=== PATIENT | female | born 1950 | race Caucasian/White ===

== ENCOUNTER 2018-11-27 12:17 | Emergency (ER) | payer MEDICARE ==
[2018-11-27] MEDS ORDERED: PROPARACAINE HCL OPTH 15ML BTL OPTH ONE (13:37)
--- NOTE | 2018-11-27 13:41 | Emergency Department Record ---
History of Present Illness - General Chief complaint: Eye Problem Stated complaint: PINK EYE Time Seen by Provider: 11/27/18 13:26 Source: Patient Mode of Arrival: Ambulatory Limitations: No limitations - History of Present Illness Initial comments: The patient is here due to a 7 day hx of cough and congestion. She was seen at the almost a week ago and given an oral Abx. Later in the week her eyes became red and she again was seen 4 days ago there and was treated with Polytrim eye drops. Now she feels her eyes may be reacting to the medicines and she is having more redness. She denies any eye pain, blurred vision, or LUNDY and she does not wear contacts. chief complaint: Eye redness Onset/Timin -: Days(s) Onset Description: Gradual Location: Both eyes Place: Home Severity: Moderate If Pain, Quality: Aching Consistency: Constant Associated Symptoms: Cough - Related Data Visual acuity (L) = 20/: 30 Visual acuity (R) = 20/: 30 With correction: No Previous Rx's Medication Instructions Recorded Olopatadine HCl [Pataday] 2.5 ml OP DAILY #1 drops 11/27/18 Allergies Allergy/AdvReac Type Severity Reaction Status Date / Time Bee stings Allergy Severe anaphylatic Uncoded 09/16/17 16:28 Travel Screening - Travel/Exposure Within Last 30 Days Have you traveled within the last 30 days?: No - Travel/Exposure Within Last Year Have you traveled outside the [place] in the last year?: No - Additonal Travel Details Have you been exposed to anyone with a communicable illness?: No - Travel Symptoms Symptom Screening: None Review of Systems Constitutional: Denies: Chills, Fever Eyes: Denies: Eye discharge ENT: Reports: Congestion Respiratory: Reports: Cough. 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 - CARDIOVASCULAR Hx Cardio Disorders: Yes Hx CHF: Yes Hx Hypertension: Yes - NEURO Hx Neuro Disorders: No - GI Hx GI Disorders: Yes Hx GI Bleed: Yes (10 years ago) - Hx Genitourinary Disorders: No - ENDOCRINE Hx Endocrine Disorders: No - MUSCULOSKELETAL Hx Musculoskeletal Disorders: Yes Hx Arthritis: Yes - PSYCH Hx Psych Problems: No - HEMATOLOGY/ONCOLOGY Hx Hematology/Oncology Disorders: No Family Medical History Any Significant Family History?: Yes Hx Heart Disease: Grandparents Physical Exam - General General Appearance: Alert, Oriented x3, Cooperative, No acute distress - Head Head exam: Atraumatic, Normocephalic - Eye Eye exam: PERRL, Conjunctival injection (mod bilaterally L>R.), EOMI, Other ( Neg corneal flourescein uptake on staining bilaterally.). negative: Normal appearance, Periorbital swelling, Periorbital tenderness With correction: No - ENT Throat exam: Normal inspection. negative: Tonsillar erythema, Tonsillar exudate - Neck Neck exam: Normal inspection, Full ROM. negative: Tenderness - Respiratory Respiratory exam: Normal lung sounds bilaterally. negative: Respiratory distress - Cardiovascular Cardiovascular Exam: Regular rate, Normal rhythm, Normal heart sounds Course Vital Signs 11/27/18 13:17 Temperature 98.1 F Pulse Rate 77 Respiratory 20 Rate Blood Pressure 137/94 Pulse Ox 95 - Reevaluation(s) Reevaluation #1: I did discuss the fact that the patient most likely has viral URI causing her symptoms. Additionally she could be having a reaction to the Polytrim so we will have her stop the eye drops and start antihistamine eye drops. She is to see her PCP later this week for recheck. 11/27/18 13:45 Disposition Disposition: Discharge Clinical Impression: Conjunctivitis Qualifiers: Conjunctivitis type: unspecified Laterality: bilateral Qualified Code(s): H10.9 - Unspecified conjunctivitis Disposition: Home, Self-Care Condition: (2) Stable Instructions: Conjunctivitis (ED) Additional Instructions: Please stop the eye drops and use the Pataday as directed. Please see your family doctor in 2-3 days if not better. Return to the ER for any worsening symptoms. Prescriptions: Olopatadine HCl [Pataday] 2.5 ml OP DAILY #1 drops Forms: Patient Portal Access Time of Disposition: 13:48 Quality - Quality Measures Quality Measures: N/A - Blood Pressure Screening View Details: Yes Does Patient Have Any of the Following: No Blood Pressure Classification: Hypertensive Reading Systolic Measurement: 137 Diastolic Measurement: 94 Screening for High Blood Pressure: < First Hypertensive BP, F/U Documented > [ [id number]] First Hypertensive Follow-up Interventions: Referral to alternative/primary care provider.
== END 2018-11-27 14:03 | disposition home or self-care (01) ==
LOC: ER 12:17
DX: H10.33 Unspecified acute conjunctivitis, bilateral (principal); J06.9 Acute upper respiratory infection, unspecified; R05 Cough; I10 Essential (primary) hypertension; I50.9 Heart failure, unspecified
CPT/HCPCS: 99282

== ENCOUNTER 2019-02-08 06:28 | Inpatient (IN) | payer MEDICARE ==
[2019-02-08 06:47] LABS: ABSOLUTE NEUTROPHIL COUNT 3.86; BASO % 0.5 % (0-6); EOS % 1.6 % (0-6); GRAN % 63.1 % (47-80); HEMATOCRIT 35.3 % (35.0-47.0); HEMOGLOBIN 11.6 gm/dl (11.6-16.0); LYMPH % 23.7 % (16-45); MEAN CELL VOLUME 95.7 fl (81-97); MEAN CORPUSCULAR HEMOGLOBIN 31.4 pg (27-33); MEAN CORPUSCULAR HGB CONC 32.9 g/dl (32-36); MEAN PLATELET VOLUME 9.3 fl (7.4-10.4); MONO % 11.1 % (0-9); PLATELET COUNT 277 K/uL (130-400); RED BLOOD COUNT 3.69 M/uL (3.80-5.40); RED CELL DISTRIBUTION WIDTH 13.6 % (11.5-14.5); WHITE BLOOD COUNT W/O DIFF 6.1 K/uL (4.2-12.2)
[2019-02-08] MEDS ORDERED: IPRATROPIUM/ALBUTEROL (0.5MG/3MG) NEB INH ONE (06:52)
[2019-02-08] MEDS ORDERED: METHYLPREDNISOLONE PF 125MG/VIAL IVP ONE (06:52)
[2019-02-08 06:59] LABS: BLOOD UREA NITROGEN 17 mg/dL (8-23); CREATININE 0.5 mg/dL (0.5-0.9); EST GLOMERULAR FILTRATION RATE > 60 mL/min
--- NOTE | 2019-02-08 06:59 | Emergency Department Record ---
History of Present Illness - General Chief Complaint: Shortness of breath Stated Complaint: JALEN Time Seen by Provider: 02/08/19 06:46 Source: Patient Mode of Arrival: Wheelchair Limitations: No limitations - History of Present Illness Initial Comments: pt comes in for sob. it started 3 days ago when she mowed the lawn and she felt 'funny, weak' then yesterday she became sob. it has become progressively worse. she has a hx of congenitally deformed r lung. she denies cp. she has a hx of chf and has increased swelling of her extremities MD Complaint: Shortness of breath Onset/Timin -: Days(s) Consistency: Getting worse Improves With: Nothing Worsens With: Nothing Known History Of: Congestive heart failure Context: Recent URI Associated Symptoms: Cough, lower extremity pain Treatments Prior to Arrival: None - Related Data Home Oxygen Therapy: No Home Medications Medication Instructions Recorded Confirmed Last Taken Potassium 99 mg PO DAILY 02/08/19 02/08/19 Unknown Allergies Allergy/AdvReac Type Severity Reaction Status Date / Time Bee stings Allergy Severe anaphylatic Uncoded 02/08/19 06:32 Travel Screening - Travel/Exposure Within Last 30 Days Have you traveled within the last 30 days?: No - Travel/Exposure Within Last Year Have you traveled outside the [place] in the last year?: No - Additonal Travel Details Have you been exposed to anyone with a communicable illness?: No - Travel Symptoms Symptom Screening: None Review of Systems Reviewed: No additional complaints except as noted below Constitutional: Reports: As per HPI. Denies: Chills, Fever, Malaise, Night sweats, Weakness, Weight change Eyes: Reports: As per HPI. Denies: Eye discharge, Eye pain, Photophobia, Vision change ENT: Reports: As per HPI. Denies: Congestion, Dental pain, Ear pain, Epistaxis, Hearing loss, Throat pain Respiratory: Reports: As per HPI, Cough, Dyspnea. Denies: Hemoptysis, Stridor, Wheezes Cardiovascular: Reports: As per HPI, Dyspnea on exertion. Denies: Arrhythmia, Chest pain, Edema, Murmurs, Orthopnea, Palpitations, Paroxysmal nocturnal dyspnea, Rheumatic Fever, Syncope Endocrine: Reports: As per HPI. Denies: Fatigue, Heat or cold intolerance, Polydipsia, Polyuria Gastrointestinal: Reports: As per HPI. Denies: Abdominal pain, Constipation, Diarrhea, Hematemesis, Hematochezia, Melena, Nausea, Vomiting Genitourinary: Reports: As per HPI. Denies: Abnormal menses, Discharge, Dyspareunia, Dysuria, Frequency, Hematuria, Incontinence, Retention, Urgency Musculoskeletal: Reports: As per HPI. Denies: Arthralgia, Back pain, Gout, Joint swelling, Myalgia, Neck pain Skin: Reports: As per HPI. Denies: Bruising, Change in color, Change in hair/nails, Lesions, Pruritus, Rash Neurological: Reports: As per HPI. Denies: Abnormal gait, Confusion, Headache, Numbness, Paresthesias, Seizure, Tingling, Tremors, Vertigo, Weakness Psychiatric: Reports: As per HPI. Denies: Anxiety, Auditory hallucinations, Depression, Homicidal thoughts, Suicidal thoughts, Visual hallucinations Hematological/Lymphatic: Reports: As per HPI. 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 - CARDIOVASCULAR Hx Cardio Disorders: Yes Hx CHF: Yes Hx Hypertension: Yes - NEURO Hx Neuro Disorders: No - GI Hx GI Disorders: Yes Hx GI Bleed: Yes (10 years ago) - Hx Genitourinary Disorders: No - ENDOCRINE Hx Endocrine Disorders: No - MUSCULOSKELETAL Hx Musculoskeletal Disorders: Yes Hx Arthritis: Yes - PSYCH Hx Psych Problems: No - HEMATOLOGY/ONCOLOGY Hx Hematology/Oncology Disorders: No Family Medical History Any Significant Family History?: No Hx Heart Disease: Grandparents Physical Exam - General General Appearance: Alert, Oriented x3, Cooperative, No acute distress - Head Head exam: Normal inspection - Eye Eye exam: Normal appearance, PERRL, EOMI Pupils: Normal accommodation - ENT ENT exam: Normal exam, Mucous membranes moist, Normal external ear exam, Normal orophraynx Ear exam: Normal external inspection. negative: External canal tenderness Nasal Exam: Normal inspection. negative: Discharge, Sinus tenderness Mouth exam: Normal external inspection, Tongue normal Teeth exam: Normal inspection. negative: Dental caries Throat exam: Normal inspection. negative: Tonsillar erythema, Tonsillar exudate - Neck Neck exam: Normal inspection, Full ROM. negative: Tenderness - Respiratory Respiratory exam: Normal lung sounds bilaterally, Rales (scattered crackles). negative: Respiratory distress - Cardiovascular Cardiovascular Exam: Regular rate, Normal rhythm, Normal heart sounds - GI/Abdominal GI/Abdominal exam: Soft, Normal bowel sounds. negative: Tenderness - Rectal Rectal exam: Deferred - exam: Deferred - Extremities Extremities exam: Normal inspection, Full ROM, Normal capillary refill. negative: Tenderness - Back Back exam: Reports: Normal inspection, Full ROM. Denies: Muscle spasm, Rash noted, Tenderness - Neurological Neurological exam: Alert, CN II-XII intact, Normal gait, Oriented X3 - Psychiatric Psychiatric exam: Normal affect, Normal mood - Skin Skin exam: Dry, Intact, Normal color, Warm Course Vital Signs 02/08/19 06:31 Temperature 98.1 F Pulse Rate 72 Respiratory 22 Rate Blood Pressure 183/101 Pulse Ox 97 - Reevaluation(s) Reevaluation #1: 02/08/19 07:[address] johnson Medical Decision Making - Lab Data Result diagrams: 02/08/19 06:40 02/08/19 06:40 Lab Results 02/08/19 02/08/19 Range/Units 06:40 06:47 WBC 6.1 (4.2-12.2) K/uL RBC 3.69 L (3.80-5.40) M/uL Hgb 11.6 (11.6-16.0) gm/dl Hct 35.3 (35.0-47.0) % MCV 95.7 (81-97) fl MCH 31.4 (27-33) pg MCHC 32.9 (32-36) g/dl RDW 13.6 (11.5-14.5) % Plt Count 277 (130-400) K/uL MPV 9.3 (7.4-10.4) fl Gran % 63.1 (47-80) % Lymphocytes % 23.7 (16-45) % Monocytes % 11.1 H (0-9) % Eosinophils % 1.6 (0-6) % Basophils % 0.5 (0-6) % Absolute Neutrophils 3.86 Troponin T Cancelled Disposition Quality - Quality Measures Quality Measures: N/A - Blood Pressure Screening Does Patient Have Any of the Following: Active Dx of HTN Blood Pressure Classification: Hypertensive Reading Systolic Measurement: 183 Diastolic Measurement: 101 Screening for High Blood Pressure: Patient Exclusion, Hx of HTN [[id number]]
[2019-02-08 07:02] LABS: GLUCOSE,RANDOM 136 mg/dL (74-109)
--- NOTE | 2019-02-08 07:35 | Emergency Department Record ---
History of Present Illness - General Chief Complaint: Shortness of breath Stated Complaint: JALEN Time Seen by Provider: 02/08/19 06:46 Source: Patient Mode of Arrival: Wheelchair Limitations: No limitations - History of Present Illness Initial Comments: took over from Dr Cintron at 7am and she was mowing the lawn 3 days ago and progressively more SOB much worse yesterday where she felt she could not walk between rooms in her house. previous episode of CHF 20 years ago and her child life assistant is Dr Reno.primary is Dr Duenas. patient denies chest pain and she said she knows she has LBBB. Onset/Timin -: Days(s) Consistency: Getting worse Improves With: Nothing Worsens With: Nothing Known History Of: Congestive heart failure Context: Recent URI Associated Symptoms: Cough, lower extremity pain Treatments Prior to Arrival: None - Related Data Home Oxygen Therapy: No Home Medications Medication Instructions Recorded Confirmed Last Taken Potassium 99 mg PO DAILY 02/08/19 02/08/19 Unknown Allergies Allergy/AdvReac Type Severity Reaction Status Date / Time Bee stings Allergy Severe anaphylatic Uncoded 02/08/19 06:32 Travel Screening - Travel/Exposure Within Last 30 Days Have you traveled within the last 30 days?: No - Travel/Exposure Within Last Year Have you traveled outside the [place] in the last year?: No - Additonal Travel Details Have you been exposed to anyone with a communicable illness?: No - Travel Symptoms Symptom Screening: None Review of Systems Constitutional: Reports: As per HPI. Denies: Chills, Fever, Malaise, Night sweats, Weakness, Weight change Eyes: Reports: As per HPI. Denies: Eye discharge, Eye pain, Photophobia, Vision change ENT: Reports: As per HPI. Denies: Congestion, Dental pain, Ear pain, Epistaxis, Hearing loss, Throat pain Respiratory: Reports: As per HPI, Cough, Dyspnea. Denies: Hemoptysis, Stridor, Wheezes Cardiovascular: Reports: As per HPI, Dyspnea on exertion. Denies: Arrhythmia, Chest pain, Edema, Murmurs, Orthopnea, Palpitations, Paroxysmal nocturnal dyspnea, Rheumatic Fever, Syncope Endocrine: Reports: As per HPI. Denies: Fatigue, Heat or cold intolerance, Polydipsia, Polyuria Gastrointestinal: Reports: As per HPI. Denies: Abdominal pain, Constipation, Diarrhea, Hematemesis, Hematochezia, Melena, Nausea, Vomiting Genitourinary: Reports: As per HPI. Denies: Abnormal menses, Discharge, Dyspareunia, Dysuria, Frequency, Hematuria, Incontinence, Retention, Urgency Musculoskeletal: Reports: As per HPI. Denies: Arthralgia, Back pain, Gout, Joint swelling, Myalgia, Neck pain Skin: Reports: As per HPI. Denies: Bruising, Change in color, Change in hair/nails, Lesions, Pruritus, Rash Neurological: Reports: As per HPI. Denies: Abnormal gait, Confusion, Headache, Numbness, Paresthesias, Seizure, Tingling, Tremors, Vertigo, Weakness Psychiatric: Reports: As per HPI. Denies: Anxiety, Auditory hallucinations, Depression, Homicidal thoughts, Suicidal thoughts, Visual hallucinations Hematological/Lymphatic: Reports: As per HPI. 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 - CARDIOVASCULAR Hx Cardio Disorders: Yes Hx CHF: Yes Hx Hypertension: Yes - NEURO Hx Neuro Disorders: No - GI Hx GI Disorders: Yes Hx GI Bleed: Yes (10 years ago) - Hx Genitourinary Disorders: No - ENDOCRINE Hx Endocrine Disorders: No - MUSCULOSKELETAL Hx Musculoskeletal Disorders: Yes Hx Arthritis: Yes - PSYCH Hx Psych Problems: No - HEMATOLOGY/ONCOLOGY Hx Hematology/Oncology Disorders: No Family Medical History Any Significant Family History?: No Hx Heart Disease: Grandparents Physical Exam - General General Appearance: Alert, Oriented x3, Cooperative, Mild distress Limitations: No limitations - Head Head exam: Normal inspection - Eye Eye exam: Normal appearance, PERRL Pupils: Normal accommodation - ENT ENT exam: Normal exam, Mucous membranes moist, Normal external ear exam, Normal orophraynx, TM's normal bilaterally Ear exam: Normal external inspection. negative: External canal tenderness Nasal Exam: Normal inspection. negative: Discharge, Sinus tenderness Mouth exam: Normal external inspection (slight sore throat), Tongue normal Teeth exam: Normal inspection. negative: Dental caries Throat exam: Normal inspection. negative: Tonsillar erythema, Tonsillar exudate - Neck Neck exam: Normal inspection, Full ROM. negative: Tenderness - Respiratory Respiratory exam: Rales - Cardiovascular Cardiovascular Exam: Regular rate, Normal rhythm, Normal heart sounds - GI/Abdominal GI/Abdominal exam: Soft, Normal bowel sounds. negative: Tenderness - Rectal Rectal exam: Deferred - exam: Deferred - Extremities Extremities exam: Normal inspection (no pedal edema), Full ROM, Normal capillary refill. negative: Tenderness - Back Back exam: Reports: Normal inspection, Full ROM. Denies: Muscle spasm, Rash noted, Tenderness - Neurological Neurological exam: Alert, Normal gait, Oriented X3, Reflexes normal - Psychiatric Psychiatric exam: Normal affect, Normal mood Course Vital Signs 02/08/19 02/08/19 02/08/19 06:31 06:58 07:05 Temperature 98.1 F Pulse Rate 72 64 63 Respiratory 22 20 22 Rate Blood Pressure 183/101 Pulse Ox 97 96 - Reevaluation(s) Reevaluation #1: patient felt better after the breathing treatment and solumedrol and no rales after that. 02/08/19 07:44 Reevaluation #2: discussed case with Jyoti Khan and will admit to Dr Duenas. 02/08/19 09:16 Medical Decision Making - Data Complexity MDM Data: Labs Ordered and/or Reviewed (d dimer elevated .79), X-Ray Ordered and/or Reviewed (PE RLL with decreased right lung volume unchanged from before), EKG Ordered and/or Reviewed (LBBB similiar from before) - Lab Data Result diagrams: 02/08/19 06:40 02/08/19 06:40 Lab Results 02/08/19 02/08/19 02/08/19 Range/Units 06:40 06:40 06:47 WBC 6.1 (4.2-12.2) K/uL RBC 3.69 L (3.80-5.40) M/uL Hgb 11.6 (11.6-16.0) gm/dl Hct 35.3 (35.0-47.0) % MCV 95.7 (81-97) fl MCH 31.4 (27-33) pg MCHC 32.9 (32-36) g/dl RDW 13.6 (11.5-14.5) % Plt Count 277 (130-400) K/uL MPV 9.3 (7.4-10.4) fl Gran % 63.1 (47-80) % Lymphocytes % 23.7 (16-45) % Monocytes % 11.1 H (0-9) % Eosinophils % 1.6 (0-6) % Basophils % 0.5 (0-6) % Absolute Neutrophils 3.86 Sodium 139 (136-145) mmol/L Potassium 3.9 (3.4-4.5) mmol/L Chloride 102 (98-107) mmol/L Carbon Dioxide 24.0 (22-29) mmol/L Anion Gap 13.0 (7-16) BUN 17 (8-23) mg/dL Creatinine 0.5 (0.5-0.9) mg/dL Estimated GFR > 60 mL/min Random Glucose 136 H (74-109) mg/dL Calcium 9.3 (8.8-10.2) mg/dL Troponin T < 0.010 Cancelled (0-0.010) ng/mL NT-Pro-B Natriuret Pep 2372.00 H (<125) pg/mL Disposition Clinical Impression: Dyspnea Qualifiers: Dyspnea type: shortness of breath Qualified Code(s): R06.02 - Shortness of breath Pulmonary embolism Qualifiers: Pulmonary embolism type: other Chronicity: acute Acute cor pulmonale presence: without acute cor pulmonale Qualified Code(s): I26.99 - Other pulmonary embolism without acute cor pulmonale Decision to Admit: Admit from ER Condition: (2) Stable Forms: Patient Portal Access Quality - Quality Measures Quality Measures: N/A - Blood Pressure Screening Does Patient Have Any of the Following: No, Active Dx of HTN Blood Pressure Classification: Hypertensive Reading Systolic Measurement: 183 Diastolic Measurement: 101 Screening for High Blood Pressure: Patient Exclusion, Hx of HTN [G9744]
[2019-02-08] MEDS ORDERED: HEPARIN SODIUM 1000 UNIT/1 ML 10ML VIAL IVP ONE (08:59)
[2019-02-08] MEDS ORDERED: HEPARIN SODIUM/D5W 25,000 UNITS/500 ML BAG IV SCH ×2 (09:00→09:30)
[2019-02-08] MEDS ORDERED: ACETAMINOPHEN 325 MG TAB PO PRN (09:17)
[2019-02-08 09:20] LABS: PARTIAL THROMBOPLASTIN TIME 25.4 SECONDS (24.5-39.1); PROTHROMBIN TIME (PATIENT) 10.3 SECONDS (9.5-12.1)
[2019-02-08] MEDS: IPRATROPIUM/ALBUTEROL (0.5MG/3MG) NEB INH SCH ×4 (13:31→22:26)
[2019-02-08] MEDS: POTASSIUM CHLORIDE 10 MEQ TAB PO SCH (13:36)
[2019-02-08] MEDS ORDERED: APIXABAN 5MG TABLET PO ONE (16:00)
--- NOTE | 2019-02-08 20:49 | History & Physical ---
History of Present Illness - Date of Service Date of Service for History & Physical: 02/08/19 - History of Present Illness Admitting Diagnosis: pulmonary Embolism RLL. history of CHF. elevated d-dimer. elevated BNP History of Present Illness: Mrs. Nagel is a 68 year old female who presented to the ED this morning with c/o shortness of breath. She stated that it began 3 days ago and worsened yesterday where she felt she could not walk between rooms in her house. She reported a previous episode of CHF 20 years ago and her clinical trainer is Dr [place]. She denies chest pain and she said she knows she has LBBB. 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 I the ED, her vitals were: BP 183/101, HR 72, RR 22, 97% on room air, and T 98.1F. Labs revealed elevated D Dimer 0.79, proBNP of 2,372. Chest CTA revealed RLL PE. EKG demonstrated L BBB, unchanged from previous. She was admitted for anticoagulation management, echo ordered to r/o clot/CHF and cleve ateral venous dopplers. 1630: Pt. is sitting up in bed, she states that her ease of breathing has improved. She is currently on heparin drip. Dopplers have been completed and result is pending. Echo report demonstrates mild to mod mitral regurg, otherwise unremarkable. Will change heparin to Eliquis- 10mg bid for 7 days, then 5mg bid. Plan for cardio consult tomorrow. PCP: MONIKA Madden Travel Screening - Travel/Exposure Within Last 30 Days Have you traveled within the last 30 days?: No - Travel/Exposure Within Last Year Have you traveled outside the [place] in the last year?: No - Additonal Travel Details Have you been exposed to anyone with a communicable illness?: No - Travel Symptoms Symptom Screening: None Review of Systems Constitutional: Reports: As per HPI. Denies: Chills, Fever, Malaise, Night sweats, Weakness, Weight change Eyes: Reports: As per HPI. Denies: Eye discharge, Eye pain, Photophobia, Vision change ENT: Reports: As per HPI. Denies: Congestion, Dental pain, Ear pain, Epistaxis, Hearing loss, Throat pain Respiratory: Reports: As per HPI, Cough, Dyspnea. Denies: Hemoptysis, Stridor, Wheezes Cardiovascular: Reports: As per HPI, Dyspnea on exertion. Denies: Arrhythmia, Chest pain, Edema, Murmurs, Orthopnea, Palpitations, Paroxysmal nocturnal dyspnea, Rheumatic Fever, Syncope Endocrine: Reports: As per HPI. Denies: Fatigue, Heat or cold intolerance, Polydipsia, Polyuria Gastrointestinal: Reports: As per HPI. Denies: Abdominal pain, Constipation, Diarrhea, Hematemesis, Hematochezia, Melena, Nausea, Vomiting Genitourinary: Reports: As per HPI. Denies: Abnormal menses, Discharge, Dyspareunia, Dysuria, Frequency, Hematuria, Incontinence, Retention, Urgency Musculoskeletal: Reports: As per HPI. Denies: Arthralgia, Back pain, Gout, Joint swelling, Myalgia, Neck pain Skin: Reports: As per HPI. Denies: Bruising, Change in color, Change in hair/nails, Lesions, Pruritus, Rash Neurological: Reports: As per HPI. Denies: Abnormal gait, Confusion, Headache, Numbness, Paresthesias, Seizure, Tingling, Tremors, Vertigo, Weakness Psychiatric: Reports: As per HPI. Denies: Anxiety, Auditory hallucinations, Depression, Homicidal thoughts, Suicidal thoughts, Visual hallucinations Hematological/Lymphatic: Reports: As per HPI. 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 - CARDIOVASCULAR Hx Cardio Disorders: Yes Hx CHF: Yes Hx Hypertension: Yes - NEURO Hx Neuro Disorders: No - GI Hx GI Disorders: Yes Hx GI Bleed: Yes (10 years ago) - Hx Genitourinary Disorders: No - ENDOCRINE Hx Endocrine Disorders: No Hx Diabetes: No Hx Thyroid Disease: No - MUSCULOSKELETAL Hx Musculoskeletal Disorders: Yes Hx Arthritis: Yes Comment:: hip replacement 2017 - PSYCH Hx Psych Problems: No - HEMATOLOGY/ONCOLOGY Hx Hematology/Oncology Disorders: No Family Medical History Any Significant Family History?: Yes Hx Heart Disease: Grandparents H&P Meds/Allergies - Allergies Allergies: Allergies Allergy/AdvReac Type Severity Reaction Status Date / Time Bee stings Allergy Severe anaphylatic Uncoded 02/08/19 06:32 - Home Medications Home Medications Medication Instructions Recorded Confirmed Last Taken Calcium/Magnesium/Zinc 1 each PO DAILY 02/08/19 02/08/19 Unknown [Khwmpol-Pficwghga-Fvnj Tablet] Multivitamin/Iron/Folic Acid 1 each PO DAILY 02/08/19 02/08/19 Unknown [Centrum Women Tablet] Potassium 99 mg PO DAILY 02/08/19 02/08/19 Unknown - Active Medications Active Medications: Current Medications Acetaminophen (Tylenol 325mg) 650 mg PO Q4H PRN PRN Reason: PAIN - MILD TO MODERATE (1-7) Albuterol/Ipratropium (Duoneb) 3 ml INH RESP.Q4H.[facility] Last Admin: 02/08/19 18:01 Dose: 3 ml Documented by: Apixaban (Eliquis) 10 mg PO BID [facility] Atenolol (Tenormin) 50 mg PO DAILY [facility] Hydrochlorothiazide (Hctz 12.5mg) 12.5 mg PO DAILY [facility] Lisinopril (Zestril) 20 mg PO DAILY [facility] Potassium Chloride (Klor-Con) 10 meq PO DAILY [facility] Last Admin: 02/08/19 13:36 Dose: 10 meq Documented by: Physical Exam - Vital Signs Vital Signs: Vital Signs - Last 24 Hrs Temp Pulse Pulse Pulse Resp BP BP 02/08/19 18:00 81 16 02/08/19 17:23 97.1 F L 72 16 157/76 02/08/19 15:37 58 L 65 18 02/08/19 14:00 65 18 153/98 02/08/19 13:50 60 16 02/08/19 12:03 60 22 164/109 02/08/19 11:50 97.6 F 62 18 179/107 02/08/19 09:13 58 L 18 162/93 02/08/19 08:05 62 22 179/93 02/08/19 07:05 63 22 02/08/19 06:58 64 20 02/08/19 06:31 98.1 F 72 22 183/101 Pulse Ox 02/08/19 18:00 02/08/19 17:23 96 02/08/19 15:37 02/08/19 14:00 97 02/08/19 13:50 95 02/08/19 12:03 98 02/08/19 11:50 96 02/08/19 09:13 97 02/08/19 08:05 94 L 02/08/19 07:05 02/08/19 06:58 96 02/08/19 06:31 97 - General General Appearance: Alert, Oriented x3, Cooperative, No acute distress Limitations: No limitations - Head Head exam: Normal inspection - Eye Eye exam: Normal appearance, PERRL Pupils: Normal accommodation - ENT ENT exam: Normal exam, Mucous membranes moist, Normal external ear exam, Normal orophraynx, TM's normal bilaterally Ear exam: Normal external inspection. negative: External canal tenderness Nasal Exam: Normal inspection. negative: Discharge, Sinus tenderness Mouth exam: Normal external inspection (slight sore throat), Tongue normal Teeth exam: Normal inspection. negative: Dental caries Throat exam: Normal inspection. negative: Tonsillar erythema, Tonsillar exudate - Neck Neck exam: Normal inspection, Full ROM. negative: Tenderness - Respiratory Respiratory exam: Rales - Cardiovascular Cardiovascular Exam: Regular rate, Normal rhythm, Normal heart sounds - GI/Abdominal GI/Abdominal exam: Soft, Normal bowel sounds. negative: Tenderness - Rectal Rectal exam: Deferred - exam: Deferred - Extremities Extremities exam: Normal inspection (no pedal edema), Full ROM, Normal capillary refill. negative: Tenderness - Back Back exam: Reports: Normal inspection, Full ROM. Denies: Muscle spasm, Rash noted, Tenderness - Neurological Neurological exam: Alert, Normal gait, Oriented X3, Reflexes normal - Psychiatric Psychiatric exam: Normal affect, Normal mood - Skin Skin exam: Dry, Intact, Normal color, Warm Results - Labs Result Diagrams: 02/08/19 06:40 02/08/19 06:40 Labs Last 24 Hours: Laboratory Results - last 24 hr 02/08/19 02/08/19 02/08/19 06:40 06:40 06:40 WBC 6.1 RBC 3.69 L Hgb 11.6 Hct 35.3 MCV 95.7 MCH 31.4 MCHC 32.9 RDW 13.6 Plt Count 277 MPV 9.3 Gran % 63.1 Lymphocytes % 23.7 Monocytes % 11.1 H Eosinophils % 1.6 Basophils % 0.5 Absolute Neutrophils 3.86 PT INR APTT D-Dimer 0.79 H Sodium 139 Potassium 3.9 Chloride 102 Carbon Dioxide 24.0 Anion Gap 13.0 BUN 17 Creatinine 0.5 Estimated GFR > 60 Random Glucose 136 H Calcium 9.3 Troponin T < 0.010 NT-Pro-B Natriuret Pep 2372.00 H 02/08/19 02/08/19 02/08/19 06:40 06:47 12:22 WBC RBC Hgb Hct MCV MCH MCHC RDW Plt Count MPV Gran % Lymphocytes % Monocytes % Eosinophils % Basophils % Absolute Neutrophils PT 10.3 INR 1.0 APTT 25.4 112.3 H D-Dimer Sodium Potassium Chloride Carbon Dioxide Anion Gap BUN Creatinine Estimated GFR Random Glucose Calcium Troponin T Cancelled NT-Pro-B Natriuret Pep - Imaging and Cardiology CT scan - chest Status: Report reviewed (RLL PE) VTE H&P Assessment - Risk for VTE Risk for VTE: Yes Risk Level: High Risk Assessment Date: 02/08/19 Risk Assessment Time: 20:50 VTE Orders Placed or Will Be Placed: Yes Plan - Inpatient Certification Inpatient Certification: Admit to inpatient care: Based on my medical assessment, after consideration of patient's risk factors (age, co-morbidities and patient presenting symptoms and acuity), I expect that this patient will remain in the hospital greater than or equal to two midnights and that the services needed warrant inpatient care b ecause: Patient Risk Factors: [age, comorbidities] Estimated length of stay: [48-96 hours] The patient may reasonably be expected to be discharged or transferred to a hospital within 96 hours after admission to [facility]. Services needed: [laboratory monitoring, cardiology consult] Post hospital care (if known): [] I certify that my determination is in accordance with my understanding of Medicare requirements for reasonable and necessary inpatient services. 02/08/19 20:50 - Detailed Diagnosis and Plan (1) Pulmonary embolism Current Visit: Yes Status: Acute Qualifiers: Pulmonary embolism type: other Chronicity: acute Acute cor pulmonale presence: without acute cor pulmonale Qualified Code(s): I26.99 - Other pulmonary embolism without acute cor pulmonale Base Code: I26.99 - OTHER PULMONARY EMBOLISM WITHOUT ACUTE COR PULMONALE Com ment: 02/08/19: -Chest CTA demonstated RLL PE -Continue Eliquis 10mg bid -Echo neg for clots -Venous dopplers pending (2) Hypertension Current Visit: Yes Status: Acute Base Code: I10 - ESSENTIAL (PRIMARY) HYPERTENSION Comment: 02/08/19: -Continue home regimen- lisinopril 20mg daily (3) History of CHF (congestive heart failure) Current Visit: Yes Status: Acute Base Code: Z86.79 - PERSONAL HISTORY OF OTHER DISEASES OF THE CIRCULATORY SYSTEM Comment: 02/08/19: -Hx of CHF 20 years ago -ProBNP elevated -cardiology consulted for 02/09 (4) At risk for deep venous thrombosis Current Visit: Yes Status: Acute Base Code: Z91.89 - OT PERSONAL RISK FACT ORS, NOT ELSEWHERE CLASSIFIED Comment: 02/12/19: -High risk for DVT -venous dopplers pending -Continue Eliquis 10mg bid (5) Full code status Current Visit: Yes Status: Acute Base Code: Z78.9 - OTHER SPECIFIED HEALTH STATUS Comment: 02/08/19: -Pt. is a full code
[2019-02-09] MEDS ORDERED: APIXABAN 5MG TABLET PO SCH (06:00)
[2019-02-09] MEDS: IPRATROPIUM/ALBUTEROL (0.5MG/3MG) NEB INH SCH ×2 (06:02→09:31)
[2019-02-09 07:15] LABS: BASO % 0.1 % (0-6); EOS % 0.1 % (0-6); GRAN % 55.8 % (47-80); HEMATOCRIT 35.2 % (35.0-47.0); HEMOGLOBIN 11.4 gm/dl (11.6-16.0); LYMPH % 33.1 % (16-45); MEAN CELL VOLUME 96.7 fl (81-97); MEAN CORPUSCULAR HEMOGLOBIN 31.3 pg (27-33); MEAN CORPUSCULAR HGB CONC 32.4 g/dl (32-36); MONO % 10.9 % (0-9); PLATELET COUNT 275 K/uL (130-400); RED BLOOD COUNT 3.64 M/uL (3.80-5.40); RED CELL DISTRIBUTION WIDTH 14.2 % (11.5-14.5); WHITE BLOOD COUNT W/O DIFF 7.2 K/uL (4.2-12.2)
--- NOTE | 2019-02-09 07:32 | CT ANGIOGRAM REPORT ---
EXAM: CT ANGIOGRAM OF THE CHEST HISTORY: SHORTNESS OF BREATH. ELEVATED D-DIMER. TECHNIQUE: Routine CTA examination of the chest was performed utilizing a pulmonary embolus protocol with 100 ml of Omnipaque 350 utilized. Coronal and sagittal maximum intensity projection reformatted images are generated and reviewed. Comparison: CT angiogram of the chest dated 07/26/16. FINDINGS: Opacification of the pulmonary arteries is satisfactory for interpretation. There is mild heterogeneous density scattered within the main arteries extending into lobar arteries. It is indeterminate whether this is artifact or ill defined strands of embolus. There is definite luminal filling defect within the right lower lobe pulmonary artery consistent with acute embolus. No other definite filling defect within the outflow tract, main arteries, lobar arteries or proximal segmental arteries. The heart is mildly enlarged. No evidence of acute right heart strain. There is mild atherosclerosis of the thoracic aorta without aneurysmal dilatation. Opacification of the thoracic aorta is suboptimal for evaluation of dissection. No new mediastinal nor hilar mass is demonstrated. The central airways are clear. There is again noted significant volume loss of the right hemithorax with elevation of the right hemidiaphragm. There is associated scarring/chronic atelectasis scattered throughout the lung most pronounced in the middle and lower lobes. There is associated bronchiectasis. Chronic calcifications are again noted scattered throughout the right lung. Mild pleural thickening is again noted in the right hemithorax posteriorly, stable. Mild linear scarring versus atelectasis redemonstrated within the lingula and left lung apex. The left lung and pleural space are otherwise clear. The adrenal glands are not enlarged. A small sliding type hiatal hernia is possible. No new lytic or blastic bone lesion. There are degenerative changes scattered throughout the visualized spine and shoulder girdles. Degenerative changes of the right glenohumeral joint are advanced. IMPRESSION: 1. FINDINGS CONSISTENT WITH ACUTE PULMONARY EMBOLUS WITHIN THE RIGHT LOWER LOBE PULMONARY ARTERY. THERE IS ALSO HETEROGENEITY SCATTERED WITHIN THE MAIN PULMONARY ARTERIES AND LOBAR ARTERIES WHICH MAY JUST RELATE TO ARTIFACT THOUGH SMALL STRANDS OF EMBOLUS CANNOT BE EXCLUDED. 2. CHRONIC CHANGES THROUGHOUT THE RIGHT LUNG AND PLEURA, GROSSLY STABLE IN THE INTERVAL INCLUDING CHRONIC ATELECTASIS OF THE RIGHT MIDDLE AND LOWER LOBES. JOB NUMBER: [id number] [facility]
[2019-02-09 07:36] LABS: ALB/GLOB RATIO 1.7 (1.1-1.8); ALBUMIN 4.5 g/dL (4.0-5.0); ALKALINE PHOSPHATASE 49 U/L (35-104); ALT/SGPT 17 U/L (<33); AST/SGOT 20 U/L (10.0-35.0); BLOOD UREA NITROGEN 16 mg/dL (8-23); CREATININE 0.6 mg/dL (0.5-0.9); EST GLOMERULAR FILTRATION RATE > 60 mL/min; GLUCOSE,RANDOM 125 mg/dL (74-109); TOTAL PROTEIN 7.1 g/dL (6.6-8.7)
--- NOTE | 2019-02-09 07:39 | US VENOUS DOPPLER REPORT ---
EXAM: BILATERAL LOWER EXTREMITY VENOUS DOPPLER ULTRASOUND HISTORY: BILATERAL LEG PAIN. TECHNIQUE: Salcedo scale, color Doppler and Duplex Doppler evaluation of the deep venous structures of the bilateral lower extremities is performed from the level of the external iliac vein through the calf veins. Comparison: None. FINDINGS: RIGHT LOWER EXTREMITY: The external iliac vein, common femoral vein, deep femoral vein, greater saphenous vein, all segments of the superficial femoral vein and the popliteal vein are anechoic and completely compressible throughout. Normal venous waveforms are noted at all levels and these waveforms are augmentable. The peroneal, posterior tibial, and anterior tibial veins appear patent throughout. LEFT LOWER EXTREMITY: The external iliac vein, common femoral vein, deep femoral vein, greater saphenous vein, all segments of the superficial femoral vein, and the popliteal veins are anechoic and completely compressible throughout. Normal venous waveforms are noted at ll levels and these waveforms are augmentable. The peroneal, posterior tibial and anterior tibial veins appear patent throughout. IMPRESSION: NO EVIDENCE OF DEEP VENOUS THROMBOSIS WITHIN EITHER LOWER EXTREMITY. JOB NUMBER: [id number] [facility]
[2019-02-09] MEDS: POTASSIUM CHLORIDE 10 MEQ TAB PO SCH (09:19)
[2019-02-09] MEDS ORDERED: ATENOLOL 50 MG TABLET PO SCH (10:00)
[2019-02-09] MEDS ORDERED: HYDROCHLOROTHIAZIDE 12.5 MG CAPSULE PO SCH (10:00)
[2019-02-09] MEDS ORDERED: LISINOPRIL 20 MG TABLET PO SCH (10:00)
--- NOTE | 2019-02-09 13:27 | Discharge Summary ---
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?: [place] Physical Exam - Vital Signs Vital Signs: Vital Signs - Last 24 Hrs Temp Pulse Pulse Pulse Resp BP Pulse Ox 02/09/19 09:00 128 H 17 02/09/19 08:00 97.9 F 128 H 17 158/95 93 L 02/09/19 06:04 68 16 02/09/19 06:03 64 16 96 02/09/19 05:51 97.8 F 66 18 171/82 95 02/08/19 22:27 80 16 02/08/19 22:26 76 16 95 02/08/19 21:49 98.8 F 72 16 143/76 95 02/08/19 20:37 16 02/08/19 18:00 81 16 02/08/19 17:23 97.1 F L 72 16 157/76 96 02/08/19 15:37 58 L 65 18 02/08/19 14:00 65 18 153/98 97 02/08/19 13:50 60 16 95 - General General Appearance: Alert, Oriented x3, Cooperative, No acute distress Limitations: No limitations - Head Head exam: Normal inspection - Eye Eye exam: Normal appearance, PERRL Pupils: Normal accommodation - ENT ENT exam: Normal exam, Mucous membranes moist, Normal external ear exam, Normal orophraynx, TM's normal bilaterally Ear exam: Normal external inspection. negative: External canal tenderness Nasal Exam: Normal inspection. negative: Discharge, Sinus tenderness Mouth exam: Normal external inspection (slight sore throat), Tongue normal Teeth exam: Normal inspection. negative: Dental caries Throat exam: Normal inspection. negative: Tonsillar erythema, Tonsillar exudate - Neck Neck exam: Normal inspection, Full ROM. negative: Tenderness - Respiratory Respiratory exam: Rales - Cardiovascular Cardiovascular Exam: Regular rate, Normal rhythm, Normal heart sounds - GI/Abdominal GI/Abdominal exam: Soft, Normal bowel sounds. negative: Tenderness - Rectal Rectal exam: Deferred - exam: Deferred - Extremities Extremities exam: Normal inspection (no pedal edema), Full ROM, Normal capillary refill. negative: Tenderness - Back Back exam: Reports: Normal inspection, Full ROM. Denies: Muscle spasm, Rash noted, Tenderness - Neurological Neurological exam: Alert, Normal gait, Oriented X3, Reflexes normal - Psychiatric Psychiatric exam: Normal affect, Normal mood - Skin Skin exam: Dry, Intact, Normal color, Warm Hospitalization - Hospitalization Admission Diagnosis: pulmonary Embolism RLL. history of CHF. elevated d-dimer. elevated BNP - Problem List/Discharge Diagnosis (1) Pulmonary embolism Current Visit: Yes Status: Acute Discharge Diagnosis: Pulmonary embolism type: other Chronicity: acute Acute cor pulmonale presence: without acute cor pulmonale Qualified Code(s): I26.99 - Other pulmonary embolism without acute cor pulmonale Base Code: I26.99 - OTHER PULMONARY EMBOLISM WITHOUT ACUTE COR PULMONALE Comment: 02/09/19: -Chest CTA demonstated RLL PE -Continue Eliquis 10mg bid for 1 week, then 5mg bid (2) Hypertension Current Visit: Yes Status: Acute Base Code: I10 - ESSENTIAL (PRIMARY) HYPERTENSION Comment: 02/09/19: -Continue home regimen- lisinopril 20mg daily (3) History of CHF (congestive heart failure) Current Visit: Yes Status: Acute Base Code: Z86.79 - PERSONAL HISTORY OF OTHER DISEASES OF THE CIRCULATORY SYSTEM Comment: 02/09/19: -Hx of CHF 20 years ago -ProBNP elevated -cardiology consulted and no med changes- will f/u with Dr. Reno in May 2019 (4) Afib Current Visit: Yes Status: Acute Base Code: I48.91 - UNSPECIFIED ATRIAL FIBRILLATION Comment: 02/09/19: -Episode of afib this am, confirmed with EKG -Per Dr. Morley, will continue with eliquis 10mg bid for 1 week, then 5mg bid (5) At risk for deep venous thrombosis Current Visit: Yes Status: Acute Base Code: Z91.89 - OTH PERSONAL RISK FACTORS, NOT ELSEWHERE CLASSIFIED Comment: 02/09/19: -High risk for DVT -venous dopplers pending -Continue Eliquis 10mg bid (6) Full code status Current Visit: Yes Status: Acute Base Code: Z78.9 - OTHER SPECIFIED HEALTH STATUS Comment: 02/09/19: -Pt. is a full code - Hospitalization Course Disposition: Home, Self-Care Hospital Course: Mrs. Nagel is a 68 year old female who presented to the ED this morning with c/o shortness of breath. She stated that it began 3 days ago and worsened yesterday where she felt she could not walk between rooms in her house. She reported a previous episode of CHF 20 years ago and her copywriting intern is Dr Reno. She denies chest pain and she said she knows she has LBBB. 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 I the ED, her vitals were: BP 183/101, HR 72, RR 22, 97% on room air, and T 98.1F. Labs revealed elevated D Dimer 0.79, proBNP of 2,372. Chest CTA revealed RLL PE. EKG demonstrated L BBB, unchanged from previous. She was admitted for anticoagulation management, echo ordered to r/o clot/CHF and bilateral venous dopplers. 1630: Pt. is sitting up in bed, she states that her ease of breathing has improved. She is currently on heparin drip. Dopplers have been completed and result is pending. Echo report demonstrates mild to mod mitral regurg, otherwise unremarkable. Will change heparin to Eliquis- 10mg bid for 7 days, then 5mg bid. Plan for cardio consult tomorrow. 1330: Venous dopplers neg for DVT. Pt. was tachycardid this am, rate 100-140), EKG demonstrated afib. Dr. Morley was consulted and does not recommend any med changes, okay to f/u with Dr. Reno in May. Continue Eliquis 10mg bid for 7 days, then 5mg bid. Will d/c home today, f/u with Chula Roe NP, on 02/16/19 at 1320. PCP: MONIKA Madden Procedures: Imaging and X-Rays 02/08/19 07:34 CHEST CTA w contrast [CTA] Stat 02/08/19 09:28 VENOUS DOPPLER LOWER EXT GEO [US] Stat Cardiology Procedures 02/08/19 06:36 EKG NOW 02/08/19 09:17 Procedures Tech .Continuous 02/08/19 09:28 Echo W/CF & Cardiac Doppler NOW 02/09/19 07:45 EKG NOW Abnormal Labs: Abnormal Lab Results 02/08/19 02/08/19 02/08/19 Range/Units 06:40 06:40 06:40 RBC 3.69 L (3.80-5.40) M/uL Hgb (11.6-16.0) gm/dl Monocytes % 11.1 H (0-9) % APTT (24.5-39.1) SECONDS D-Dimer 0.79 H (0-0.59) mg/L FEU Random Glucose 136 H (74-109) mg/dL NT-Pro-B Natriuret Pep 2372.00 H (<125) pg/mL 02/08/19 02/09/19 02/09/19 Range/Units 12:22 06:00 06:36 RBC 3.64 L (3.80-5.40) M/uL Hgb 11.4 L (11.6-16.0) gm/dl Monocytes % 10.9 H (0-9) % APTT 112.3 H (24.5-39.1) SECONDS D-Dimer (0-0.59) mg/L FEU Random Glucose 125 H (74-109) mg/dL NT-Pro-B Natriuret Pep (<125) pg/mL Condition at Discharge: (2) Stable Discharge Medications - Discharge Medications Prescriptions: Apixaban [Eliquis] 10 mg PO BID #28 tablet Home Medications: Ambulatory Orders Atenolol [Tenormin] 50 mg PO DAILY 02/01/16 [Last Taken 1 Day Ago ~11/26/18] Glucosamine HCl [Vegetarian Glucosamine] 750 mg PO DAILY 02/01/16 [Last Taken 1 Day Ago ~11/26/18] Lisinopril/Hydrochlorothiazide [Lisinopril-Hctz 20-12.5 mg Tab] 1 tab PO DAILY 02/01/16 [Last Taken 1 Day Ago ~11/26/18] Calcium/Magnesium/Zinc [Fxtfatk-Rbddiuias-Jsdc Tablet] 1 each PO DAILY 02/08/19 [Last Taken Unknown] Multivitamin/Iron/Folic Acid [Centrum Women Tablet] 1 each PO DAILY 02/08/19 [Last Taken Unknown] Potassium 99 mg PO DAILY 02/08/19 [Last Taken Unknown] Apixaban [Eliquis] 10 mg PO BID #28 tablet 02/09/19 [Last Taken Unknown] Discharge Plan - Discharge Instructions Activity at Discharge: Increase Activity as Tolerated Diet at Discharge: Regular Diet Additional Instructions: New patient appointment with KE Madden on February 16 at 1:20pm at [facility]. Call if any questions. Return to the ED if shortness of breath worsens, or if you develop any chest pain. Quality Measures - Quality Measures Quality Measures: Atrial Fibrillation & Atrial Flutter: Chronic Anticoagulation Therapy, Advance Directives, Documentation of Current Medications in Medical Record, Elder Maltreatment Screen and Follow-Up Plan, Screening for High Blood Pressure and F/U Documented - Current Medications Quality Measure: Measure #130: Documentation of Current Medications Documentation of Current Medications: <Current Medications Documented/Reviewed> [G8427] - Blood Pressure Screening Quality Measure: Screening for High Blood Pressure and Follow-Up Documented Does Patient Have Any of the Following: Active Dx of HTN Blood Pressure Classification: Hypertensive Reading Systolic Measurement: 164 Diastolic Measurement: 109 Screening for High Blood Pressure: Patient Exclusion, Hx of HTN [G9744] - Atrial Fibrillation and Atrial Flutter Quality Measure: Atrial Fibrillation & Atrial Flutter: Chronic Anticoagulation Therapy Does Patient Have Any of the Following: No CHADS2 Risk Stratification: Prior Stroke/TIA or Systemic Embolism, Hypertension, Heart Failure or Impaired LVSF Risk Stratification Summary: One or more high risk factors OR more than one moderate risk factor exists. [G8972] Anticoagulation Therapy: <Oral anticoagulant Prescribed> [G8967] - Advance Directives Quality Measure: Measure #47: Care Plan Advance Directives Established: No Advance Directives Information Provided To Patient: Declined Advance Directives on File: No Living Will: Yes Power of Lens Examiner: Yes Power of Lens Examiner Name: amanda nagel jr Advance Care Planning: <Care Plan/Decision Maker Documented; Discussed & Documented> [2703F] - Elder Abuse Suspicion Index Screening: Elder Abuse Suspicion Index Screening Rely on people for bathing, dressing, shopping, banking, etc: No Prevented from getting food, clothes, medication, etc: No Made to feel shamed or threatened by someone: No Forced to sign papers or use money against will: No Feel afraid, touched in ways not wanted or hurt physically: No Poor eye contact, withdrawn, malnourished, cuts or bruises: No Screening Result: Negative result EASI Reference Information: Samara FAIR, Haja C, Mercy D, Harrison Jin.Development and validation of a tool to assist physicians identification of elder abuse: The Elder Abuse Suspicion Index (EASI ). Journal of Elder Abuse and Neglect, 2008; 20 (3): 276-300. - Elder Maltreatment Screen Quality Measures: Elder Maltreatment Screen and Follow-Up Plan Elder Maltreatment Screen: <Negative, No Follow-Up Plan Required> [G8734]
== END 2019-02-09 14:45 | disposition home or self-care (01) | DRG 176 ==
LOC: ER 06:28 → MEDSURG 11:37
PROVIDERS: ADMIT Internal Medicine; ATTEND Internal Medicine
DX: I26.99 Other pulmonary embolism without acute cor pulmonale (principal); R79.1 Abnormal coagulation profile; R79.89 Other specified abnormal findings of blood chemistry; I50.9 Heart failure, unspecified; I48.91 Unspecified atrial fibrillation; I10 Essential (primary) hypertension; M19.90 Unspecified osteoarthritis, unspecified site; Q33.9 Congenital malformation of lung, unspecified; Z86.11 Personal history of tuberculosis
CPT/HCPCS: 85025; 85730; 85610; 80048; 84484; 85379; 83880; 93970; 71275; 94640; 93005; 93010; Q9967; 80053; 93306; 94761; 96365; 96366; 96374; 96376; 99223; 99239; 99285; J2930

== ENCOUNTER 2019-05-02 05:42 | Emergency (ER) | payer MEDICARE ==
[2019-05-02] MEDS ORDERED: IPRATROPIUM/ALBUTEROL (0.5MG/3MG) NEB INH ONE (05:54)
--- NOTE | 2019-05-02 06:00 | Emergency Department Record ---
History of Present Illness - General Chief Complaint: Shortness of breath Stated Complaint: JALEN Time Seen by Provider: 05/02/19 05:49 Source: Patient Mode of Arrival: Ambulatory Limitations: No limitations - History of Present Illness Initial Comments: 68 yo female presents to ED for evaluation of difficulty in breathing for the past 2 days. Patient reports sinus drainage symptoms and increased lower extremity edema and history of CHF, was recently taken off of her diuretic. Patient also reports recent PE in february of this year, has been taking Eliquis daily. Patient reports mild cough symptoms, denies fevers, chills, or productive cough symptoms. Patient denies chest pain or discomfort. Patient does report mowing several acres of grass 2 days ago as well just prior to the onset of her symptoms. MD Complaint: Shortness of breath Onset/Timin -: Days(s) Severity: Moderate Consistency: Intermittent Improves With: Nothing Worsens With: Nothing Known History Of: Congestive heart failure Associated Symptoms: Denies other symptoms Treatments Prior to Arrival: None - Related Data Home Oxygen Therapy: No Previous Rx's Medication Instructions Recorded Prednisone [Prednisone 20Mg] 20 mg PO TID #15 tab 05/02/19 Allergies Allergy/AdvReac Type Severity Reaction Status Date / Time Bee stings Allergy Severe anaphylatic Uncoded 02/08/19 06:32 Travel Screening - Travel/Exposure Within Last 30 Days Have you traveled within the last 30 days?: No - Travel Symptoms Symptom Screening: None Review of Systems Constitutional: Denies: Chills, Fever, Malaise, Night sweats Eyes: Denies: Eye discharge, Eye pain ENT: Reports: Congestion. Denies: Ear pain, Epistaxis Respiratory: Reports: Dyspnea. Denies: Cough Cardiovascular: Reports: Dyspnea on exertion, Edema. Denies: Chest pain, Palpitations Endocrine: Denies: Fatigue, Heat or cold intolerance Gastrointestinal: Denies: Abdominal pain, Nausea, Vomiting Genitourinary: Denies: Incontinence, Retention Musculoskeletal: Denies: Arthralgia, Back pain Skin: Denies: Bruising, Change in color Neurological: Denies: Abnormal gait, Confusion, Headache, Seizure Psychiatric: Denies: Anxiety Hematological/Lymphatic: Reports: Blood Clots, Easy bleeding, Easy bruising. 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 - CARDIOVASCULAR Hx Cardio Disorders: Yes Hx CHF: Yes Hx Hypertension: Yes - NEURO Hx Neuro Disorders: No - GI Hx GI Disorders: Yes Hx GI Bleed: Yes (10 years ago) - Hx Genitourinary Disorders: No - ENDOCRINE Hx Endocrine Disorders: No Hx Diabetes: No Hx Thyroid Disease: No - MUSCULOSKELETAL Hx Musculoskeletal Disorders: Yes Hx Arthritis: Yes Comment:: hip replacement 2017 - PSYCH Hx Psych Problems: No - HEMATOLOGY/ONCOLOGY Hx Hematology/Oncology Disorders: No Family Medical History Any Significant Family History?: Yes Hx Heart Disease: Grandparents Physical Exam - General General Appearance: Alert, Oriented x3, Cooperative, Moderate distress Limitations: No limitations - Head Head exam: Atraumatic, Normocephalic, Normal inspection Head exam detail: negative: Abrasion, Contusion, Lord's sign, General ten derness, Hematoma, Laceration - Eye Eye exam: Normal appearance. negative: Conjunctival injection, Periorbital swelling, Periorbital tenderness, Scleral icterus - ENT Ear exam: negative: Auricular hematoma, Auricular trauma Nasal Exam: negative: Active bleeding, Discharge, Dried blood, Foreign body Mouth exam: negative: Drooling, Laceration, Muffled voice, Tongue elevation - Neck Neck exam: Normal inspection. negative: Meningismus, Tenderness - Respiratory Respiratory exam: Decreased breath sounds, Respiratory distress. negative: Rales, Rhonchi, Stridor - Cardiovascular Cardiovascular Exam: Regular rate, Normal rhythm, Normal heart sounds - GI/Abdominal GI/Abdominal exam: Soft. negative: Rebound, Rigid, Tenderness - Rectal Rectal exam: Deferred - exam: Deferred - Extremities Extremities exam: Normal inspection, Pedal edema. negative: Tenderness - Back Back exam: Denies: CVA tenderness (R), CVA tenderness (L) - Neurological Neurological exam: Alert, Normal gait, Oriented X3 - Psychiatric Psychiatric exam: Normal affect, Normal mood - Skin Skin exam: Normal color. negative: Abrasion Type of lesion: negative: abrasion Course Vital Signs 05/02/19 05:47 Pulse Rate [ 75 Pulse Ox Probe] Respiratory 38 H Rate Blood Pressure 158/90 [Left Arm] Pulse Ox 95 - Reevaluation(s) Reevaluation #1: 05/02/19 05:55 EKG: NSR 76 LBBB, no further interpretation due to BBB Reevaluation #2: 05/02/19 06:24 Patient reassessed, BS improved bilaterally. Patient is ready for CTA. Reevaluation #3: 05/02/19 06:31 Laboratory studies were reviewed and appear grossly unremarkable for an acute process except for the following: BNP 834 Reevaluation #4: 05/02/19 07:11 Patient is back from CTA, clinically significantly improved. Solumedrol ordered. Awaiting results. Reevaluation #5: 05/02/19 07:51 CTA Chest: No significant change from 02/08/19 PE RLL improved from previous Numerous chronic findings Patient was updated on all results, reports that her breathing continues to be significantly improved. Patient was offered admission, prefers to be discharged home on Prednisone and Albuterol as directed. Patient appears stable for discharge with strict instructions to to return to the ED for any worsening/re-occurence of her symptoms. Medical Decision Making - Lab Data Result diagrams: 05/02/19 05:58 05/02/19 05:58 Disposition Disposition: Discharge Clinical Impression: Acute bronchospasm Disposition: Home, Self-Care Condition: (2) Stable Instructions: Bronchospasm (ED) Additional Instructions: Return to ED if your symptoms worsen or if you have any concerns. Prednisone and Albuterol as directed. Follow-up with your family doctor in 3-5 days as directed. Prescriptions: Prednisone [Prednisone 20Mg] 20 mg PO TID #15 tab Forms: Patient Portal Access Time of Disposition: 07:54 Quality - Quality Measures Quality Measures: N/A - Blood Pressure Screening Does Patient Have Any of the Following: Active Dx of HTN Blood Pressure Classification: Pre-Hypertensive BP Reading Systolic Measurement: 126 Diastolic Measurement: 74 Screening for High Blood Pressure: Patient Exclusion, Hx of HTN [G9744]
[2019-05-02 06:06] LABS: ABSOLUTE NEUTROPHIL COUNT 2.82; BASO % 0.9 % (0-6); EOS % 2.6 % (0-6); GRAN % 49.6 % (47-80); HEMATOCRIT 35.6 % (35.0-47.0); HEMOGLOBIN 11.5 gm/dl (11.6-16.0); LYMPH % 36.9 % (16-45); MEAN CELL VOLUME 95.4 fl (81-97); MEAN CORPUSCULAR HEMOGLOBIN 30.8 pg (27-33); MEAN CORPUSCULAR HGB CONC 32.3 g/dl (32-36); MEAN PLATELET VOLUME 9.2 fl (7.4-10.4); PLATELET COUNT 321 K/uL (130-400); RED BLOOD COUNT 3.73 M/uL (3.80-5.40); RED CELL DISTRIBUTION WIDTH 13.3 % (11.5-14.5); WHITE BLOOD COUNT W/O DIFF 5.7 K/uL (4.2-12.2)
[2019-05-02 06:15] LABS: BLOOD UREA NITROGEN 15 mg/dL (8-23); CREATININE 0.5 mg/dL (0.5-0.9); EST GLOMERULAR FILTRATION RATE > 60 mL/min
[2019-05-02 06:16] LABS: TOTAL PROTEIN 6.8 g/dL (6.6-8.7)
[2019-05-02 06:18] LABS: GLUCOSE,RANDOM 119 mg/dL (74-109)
[2019-05-02 06:20] LABS: ALT/SGPT 20 U/L (<33)
[2019-05-02 06:21] LABS: ALB/GLOB RATIO 1.6 (1.1-1.8); ALBUMIN 4.2 g/dL (4.0-5.0); ALKALINE PHOSPHATASE 51 U/L (35-104); AST/SGOT 22 U/L (10.0-35.0)
[2019-05-02] MEDS ORDERED: METHYLPREDNISOLONE PF 125MG/VIAL IVP ONE (07:11)
[2019-05-02] MEDS ORDERED: ALBUTEROL HFA 8 GM INHALER INH PRN (07:55)
--- NOTE | 2019-05-03 06:40 | CT ANGIOGRAM REPORT ---
EXAM: CT ANGIOGRAM CHEST CTA w contrast HISTORY: DIFFICULTY IN BREATHING. WORSENING SHORTNESS OF BREATH WHEN SUPINE. TECHNIQUE: Routine CTA examination of the chest is performed utilizing a pulmonary embolus protocol with 67 mL of Omnipaque-350 utilized. Coronal and sagittal maximum intensity projection reformatted images are generated and reviewed. COMPARISON: CT angiogram of the chest dated 02/08/2019. FINDINGS: Opacification of the pulmonary arteries is satisfactory for interpretation. There is redemonstration of a luminal filling defect within a segmental artery of the right lower lobe. This appears slightly less pronounced in the interval. There is a questionable web-like filling defect within a segmental artery of the left lower lobe consistent with artifact or chronic embolus. This may be present on the prior examination. No definite new luminal filling defect is noted in the outflow tract, main arteries, lobar arteries, or proximal segmental arteries to suggest acute pulmonary embolic disease. The heart is stable in size. No evidence of acute right heart failure. There is diffuse atherosclerosis without aneurysmal dilatation of the abdominal aorta. No definite aortic dissection. No new mediastinal or hilar mass/lymphadenopathy. No new gross abnormality of the central airways. There is again note of significant volume loss of the right hemithorax with elevation of the right hemidiaphragm. There is associated scarring/chronic atelectasis scattered throughout the lung more pronounced in the middle and lower lobes. This pattern is unchanged. There is associated bronchiectasis. Chronic calcifications are again scattered throughout the right lung. Mild pleural thickening is again noted in the right hemithorax posteriorly, stable. Left apical pleural and parenchymal scarring is again noted. Linear scarring versus atelectasis again noted within the lingula. Mild dependent atelectasis within the left lung base. No definite new or enlarging lung nodule. There is a mild mosaic pattern scattered within the lungs particularly on the right likely relating to obstructive small airways disease. Mild pneumonitis with areas of sparing is a less likely diagnostic possibility for this pattern. No pleural or pericardial effusion. The adrenal glands are not enlarged. A small sliding-type hiatal hernia is demonstrated. No new lytic or blastic bone lesion. Degenerative changes are scattered throughout the visualized spine and shoulder girdles. Degenerative changes of the right glenohumeral joint are again noted to be advanced. IMPRESSION: 1. FILLING DEFECT WITHIN A SEGMENTAL PULMONARY ARTERY BRANCH OF THE RIGHT LOWER LOBE REDEMONSTRATED THOUGH SLIGHTLY SMALLER CONSISTENT WITH CHRONIC EMBOLUS. SOMEWHAT BLOOD-LIKE FILLING DEFECT QUESTIONED IN A SEGMENTAL ARTERY OF THE LEFT LOWER LOBE CONSISTENT WITH OLD NONEXCLUSIVE EMBOLUS OR ARTIFACT. 2. NO DEFINITE NEW PULMONARY EMBOLIC DISEASE. 3. REDEMONSTRATION OF CHRONIC CHANGES WITHIN THE RIGHT LUNG, STABLE. PLEASE SEE ABOVE DISCUSSION. 4. MILD MOSAIC PATTERN AGAIN NOTED WITHIN THE LUNGS LIKELY RELATING TO OBSTRUCTIVE SMALL AIRWAYS DISEASE. JOB NUMBER: [id number] [facility]
== END 2019-05-02 08:16 | disposition home or self-care (01) ==
LOC: ER 05:42
DX: J98.01 Acute bronchospasm (principal); Z86.711 Personal history of pulmonary embolism; Z79.01 Long term (current) use of anticoagulants
CPT/HCPCS: 71275; 80053; 83880; 84484; 85025; 93005; 93010; 94640; 94664; 96374; 99284; 99285; J2930